=== PATIENT | female | born 1990 | race Hispanic/Latino ===

== ENCOUNTER 2019-08-29 12:08 | Inpatient (IN) ==
[2019-08-29] MEDS ORDERED: AMPICILLIN 2 GM/NS 2 GM/100 ML IVPB IV ONE (12:28)
[2019-08-29] MEDS ORDERED: LR 500 ML IV ONE (12:28)
[2019-08-29] MEDS ORDERED: KEFZOL 1 GM/D5W 1 GM/50 ML IVPB IV PRN (12:28)
[2019-08-29] MEDS ORDERED: TYLENOL PO PRN (12:28)
[2019-08-29] MEDS ORDERED: PEPCID PO PRN (12:28)
[2019-08-29] MEDS ORDERED: STADOL IV PRN (12:28)
[2019-08-29] MEDS ORDERED: PEPCID IV PRN (12:28)
[2019-08-29] MEDS ORDERED: PEPCID PO ONE (12:28)
[2019-08-29] MEDS ORDERED: REGLAN PO ONE (12:28)
[2019-08-29] MEDS ORDERED: ZOFRAN IV PRN (12:28)
[2019-08-29] MEDS ORDERED: SODIUM CHLORIDE 0.9% INJ SCH (12:30)
[2019-08-29] MEDS ORDERED: PITOCIN 30 UNITS/NS 30 UNIT/500 ML IV.SOLN IV SCH ×2 (12:30→18:00)
[2019-08-29] MEDS ORDERED: LR 1,000 ML IV SCH (12:30)
[2019-08-29 12:39] LABS: URINE SOURCE VOIDED
[2019-08-29 12:52] LABS: COLOR YELLOW
[2019-08-29 12:53] LABS: BILIRUBIN URINE NEGATIVE (NEGATIVE); CLARITY CLEAR (CLEAR); GLUCOSE URINE NEGATIVE (NEGATIVE)
[2019-08-29 12:54] LABS: KETONE URINE NEGATIVE (NEGATIVE)
[2019-08-29 12:55] LABS: BLOOD URINE NEGATIVE (NEGATIVE); LEUKOCYTES URINE TRACE (NEGATIVE); NITRITE URINE NEGATIVE (NEGATIVE); PROTEIN URINE NEGATIVE (NEGATIVE); UROBILINOGEN URINE NORMAL
[2019-08-29 13:14] LABS: UR AMPHETAMINES QUAL NONE DETECTED (NONE DETECT); UR BARBITUATES QUAL NONE DETECTED (NONE DETECT); UR BENZODIAZEPIN QUAL NONE DETECTED (NONE DETECT); UR CANNABINOIDS QUAL NONE DETECTED (NONE DETECT); UR COCAINE QUAL NONE DETECTED (NONE DETECT); UR METHADONE QUAL NONE DETECTED (NONE DETECT); UR METHAMPHETAMINE QUAL NONE DETECTED (NONE DETECT); UR OPIATES QUAL NONE DETECTED (NONE DETECT); UR OXYCODONE QUAL NONE DETECTED (NONE DETECT); UR PCP QUAL NONE DETECTED (NONE DETECT); UR PROPOXYPHENE QUAL NONE DETECTED (NONE DETECT); UR TCA QUAL NONE DETECTED (NONE DETECT)
[2019-08-29] MEDS ORDERED: XYLOCAINE-MPF 1% INJ ONE (13:15)
[2019-08-29] MEDS ORDERED: MINERAL OIL PO ONE (13:15)
[2019-08-29 13:19] LABS: BASO# 0.01 X1000 (0.0-0.2); BASO% 0.1 % (0.0-0.8); EOS# 0.07 X1000 (0.0-0.7); EOS% 0.8 % (0.0-10.0); HEMATOCRIT 32.7 % (37.0-47.0); HEMOGLOBIN 10.4 g/dL (12.0-16.0); IMM GRAN# 0.05 X1000 (0.0-0.04); IMM GRAN% 0.5 % (0.0-0.5); LYMPH# 1.71 X1000 (1.2-3.4); LYMPH% 18.3 % (20.5-51.1); MCH 27.2 PG (27-31); MCHC 31.8 g/dL (33-37); MCV 85.4 FL (81-99); MONO# 0.92 X1000 (0.11-0.59); MONO% 9.9 % (1.7-9.3); NEUT# 6.57 X1000 (1.4-6.5); NEUT% 70.4 % (42.2-75.2); PLT 122 X1000 (130-400); RBC 3.83 XMIL (4.2-5.4); RDW 14.1 % (11.5-14.5); WBC 9.33 X1000 (4.8-10.8)
--- NOTE | 2019-08-29 14:17 | HISTORY AND PHYSICAL ---
ADMITTING PHYSICIAN: Dr. Sandra Quispe. CHIEF COMPLAINT: Leaking fluid. HISTORY OF PRESENT ILLNESS: A 28-year-old, G4, P3-0-0-3 at 38 weeks and 4 days by T2 ultrasound, presents to the OB Emergency Room with complaint of leaking fluid since 11 a.m. She states the fluid is clear in nature. She is also feeling regular contractions every few minutes. She denies any vaginal bleeding. She endorses movement. She denies any complications with this . She has seen Dr. Coker approximately 3 times. She had a dating ultrasound at approximately 15 weeks that established her due date of 09/08/2019. OBSTETRIC HISTORY: G1, spontaneous vaginal delivery at 40 weeks, female, 6 pounds (2005). G2, spontaneous vaginal delivery at 40 weeks, female, 7 pounds 8 ounces (2007). G3, spontaneous vaginal delivery at 40 weeks, female, 7 pounds (2014). G4 equals current. GYNECOLOGIC HISTORY: She denies any history of sexually transmitted infections. She is unsure of her last Pap smear. PAST MEDICAL HISTORY: Denies. MEDICATIONS: vitamin p.o. daily. ALLERGIES: No known drug allergies. PAST SURGICAL HISTORY: Denies. FAMILY HISTORY: Denies. SOCIAL HISTORY: She denies any tobacco, alcohol, or drug use. REVIEW OF SYSTEMS: Negative, except as mentioned in the HPI. LABORATORY DATA: White blood cell count 9.3, hemoglobin 10.4, hematocrit 32.7, platelets 122,000. Urinalysis: Trace white blood cells. UDS negative. RPR negative. Blood type O positive. HIV negative. Rubella immune. ROM Plus positive. PHYSICAL EXAMINATION: VITAL SIGNS: Temperature: 97.4, Blood pressure 90/52, respiratory rate 18, heart rate 67, oxygen saturation 99% on room air. HEART TRACINGS: 130/moderate/positive accelerations/no decelerations. [place] every 2 minutes. GENERAL: Alert. No acute distress. HEENT: Normocephalic, atraumatic. CARDIOVASCULAR: Regular rate and rhythm. LUNGS: Clear to auscultation bilaterally. No respiratory distress. ABDOMEN: Gravid, soft, nontender. PELVIC: Sterile vaginal exam: Cervix 4/60% effaced/-2 station with copious amounts of clear fluid. EXTREMITIES: No clubbing, cyanosis, or edema. IMAGING: Bedside ultrasound: Vertex presentation. ASSESSMENT AND PLAN: A 28-year-old, G4, P3-0-0-3 at 38 weeks and 4 days with limited care and gestational thrombocytopenia and spontaneous rupture of membranes. 1. Maternal status reassuring, category 1 tracing. 2. Will admit to Labor and Delivery, and plan for a vaginal delivery. Rupture of membranes confirmed with ROM Plus. 3. Continuous external monitoring and tocometry. 4. Will augment labor with Pitocin if no cervical change. 5. Discussed indications for section ( intolerance, arrest of labor) with the patient, and she voiced understanding. customer service assistant line used for the entire visit. 6. Will monitor platelet count 7. Anticipate vaginal delivery. Will treat with ampicillin for group B streptococcus prophylaxis per Pediatrics request. 8. consult for limited care [facility]
[2019-08-29] MEDS ORDERED: AMPICILLIN 1 GM/NS 1 GM/50 ML IVPB IV SCH (16:29)
[2019-08-29] MEDS ORDERED: BENADRYL IV PRN (17:55)
[2019-08-29] MEDS ORDERED: PITOCIN IM PRN (17:55)
[2019-08-29] MEDS ORDERED: MINERAL OIL PO PRN (17:55)
[2019-08-29] MEDS ORDERED: M-M-R II VACCINE SUBQ ONE (17:55)
[2019-08-29] MEDS ORDERED: XYLOCAINE-MPF 1% INJ PRN (17:55)
[2019-08-29] MEDS ORDERED: CYTOTEC PO PRN (17:55)
[2019-08-29] MEDS ORDERED: BOOSTRIX VACCINE IM ONE (17:55)
[2019-08-29] MEDS ORDERED: PERI MEDS (DERMOPLAST/NUPERCAINAL/TUCKS) MISC PRN (17:55)
[2019-08-29] MEDS ORDERED: BENADRYL PO PRN (17:55)
[2019-08-29] MEDS ORDERED: HYDROXYZINE IM PRN (17:55)
[2019-08-29] MEDS ORDERED: AMBIEN PO PRN (17:55)
[2019-08-29] MEDS ORDERED: ATARAX PO PRN (17:55)
[2019-08-29] MEDS ORDERED: PITOCIN 20 UNITS/NS 20 UNITS/1,000 ML IV.SOLN IV SCH (18:00)
--- NOTE | 2019-08-29 18:17 | OPERATIVE NOTE ---
PROCEDURE DATE: 08/29/2019 DELIVERING CLINICIAN: Janes Quispe DO. PROCEDURE: A 28-year-old, G4, P3-0-0-3 at 38 weeks and 4 days who presented with spontaneous rupture of membranes. Labor was augmented with Pitocin and she underwent a normal spontaneous vaginal delivery of a vigorous and viable female infant over an intact perineum, Apgars 8 and 9, weight of 7 pounds 8 ounce. Infant head delivered in HORACIO position. Head, shoulders, and body delivered without difficulty with maternal pushing effort. Placenta delivered spontaneously, intact with three-vessel cord. No lacerations were noted. ANESTHESIA: None. ESTIMATED BLOOD LOSS: 100 mL. Pediatric nurse in attendance. Mother stable. [facility]
[2019-08-29] MEDS: MOTRIN PO PRN (23:49)
[2019-08-29] MEDS: PERICOLACE PO SCH (23:49)
[2019-08-30 06:39] LABS: BASO# 0.02 X1000 (0.0-0.2); BASO% 0.2 % (0.0-0.8); EOS# 0.08 X1000 (0.0-0.7); EOS% 0.6 % (0.0-10.0); HEMATOCRIT 33.2 % (37.0-47.0); HEMOGLOBIN 10.3 g/dL (12.0-16.0); IMM GRAN# 0.05 X1000 (0.0-0.04); IMM GRAN% 0.4 % (0.0-0.5); LYMPH# 2.13 X1000 (1.2-3.4); LYMPH% 17.1 % (20.5-51.1); MCH 26.8 PG (27-31); MCV 86.5 FL (81-99); MONO# 1.25 X1000 (0.11-0.59); NEUT# 8.91 X1000 (1.4-6.5); NEUT% 71.7 % (42.2-75.2); PLT 131 X1000 (130-400); RBC 3.84 XMIL (4.2-5.4); RDW 14.2 % (11.5-14.5); WBC 12.44 X1000 (4.8-10.8)
[2019-08-30 08:00] LABS: ANISOCYTOSIS 1+; LYMPHS 16 % (21-51); MONO 9 % (1-9); SEGS 74 % (42-75)
[2019-08-30] MEDS: FERROUS SULFATE PO SCH (09:52)
[2019-08-30] MEDS: MOTRIN PO PRN ×2 (09:55→20:42)
[2019-08-30] MEDS: PERCOCET-5 PO PRN ×2 (17:14→22:51)
[2019-08-30] MEDS ORDERED: FLU VACCINE IM ONE (17:45)
[2019-08-30] MEDS: PERICOLACE PO SCH (20:42)
[2019-08-31 07:58] VITALS: BP 124/76
[2019-08-31] MEDS: FERROUS SULFATE PO SCH (08:12)
[2019-08-31] MEDS: MOTRIN PO PRN (08:13)
--- NOTE | 2019-08-31 10:54 | DISCHARGE SUMMARY ---
ADMISSION DATE: 08/29/2019 DISCHARGE DATE: 08/31/2019 ADMITTING DIAGNOSES: 1. at 38 weeks gestation. 2. Multiparity. 3. Leakage of fluid. 4. Early labor. DISCHARGE DIAGNOSES: 1. at 38 weeks gestation. 2. Multiparity. 3. Leakage of fluid. 4. Early labor. 5. Liveborn delivered. 6. Iron-deficiency anemia. BRIEF HISTORY AND HOSPITAL COURSE: Ruchi is a 28-year-old, 4, para 3, now 4, who was admitted at 38 and 4/7 weeks gestation complaining of leakage of fluid. She was admitted with early labor and clear fluid leaking from the vagina. She undergoes a normal first and second stage of labor, resulting in the delivery of a liveborn with Apgars 8 and 9 at 1 and 5 minutes, weight 7 pounds 8 ounces. Please see separate delivery note. The patient's course was uncomplicated. On day #1, she was afebrile with stable vital signs. She was ambulating, voiding, and tolerating a regular diet. Hemoglobin 10.3, down from 10.4, with platelets of 131,000, up from 121. On day #2, ambulating, voiding, tolerating a regular diet. Vital signs stable, afebrile. Bottle feeding. She was discharged home in stable condition. She is asked to follow up in the office with her doctor in 6 weeks. Call the office for pain, fever greater than 100.4, abnormal uterine bleeding. Maintain pelvic rest and regular diet. Continue vitamins and iron. Prescription for Motrin provided.
== END 2019-08-31 13:00 | disposition home or self-care (01) | DRG 806 ==
LOC: P.OPLD 12:08 → P.LD 12:11
PROVIDERS: ADMIT Student in an Organized Health Care Education/Training Program; ATTEND Student in an Organized Health Care Education/Training Program